=== PATIENT | female | born 1930 | race Caucasian/White ===

== ENCOUNTER 2017-07-29 16:03 | Emergency (ER) | payer MEDICARE ==
[2017-07-29] MEDS ORDERED: NITROGLYCERIN OINT 1 INCH/GM PACKET TOPICAL STA (16:44)
[2017-07-29] MEDS ORDERED: FUROSEMIDE 10 MG/ML 4 ML VIAL IV STA (16:44)
[2017-07-29] MEDS ORDERED: ASPIRIN 81 MG PO STA (16:45)
[2017-07-29 17:09] VITALS: RESP 18
[2017-07-29 17:11] LABS: Basophils % (A) 1 %; Eosinophils # (A) 0.2 k/uL (0-0.7); Eosinophils % (A) 3 %; HCT 40.3 % (34.0-46.0); HGB 13.2 gm/dL (11.4-16.0); Lymphocytes # (A) 0.7 k/uL (1.0-4.8); Lymphocytes % (A) 12 %; MCH 31.5 pg (25.0-35.0); MCHC 32.8 g/dL (31.0-37.0); Mean Platelet Volume 7.2; Monocytes # (A) 0.4 k/uL (0-1.0); Monocytes % (A) 8 %; Neutrophils % (A) 75 %; Platelet Count 198 k/uL (150-450); RDW 13.5 % (11.5-15.5); WBC 5.3 k/uL (3.8-10.6)
[2017-07-29 17:18] LABS: Partial Thromboplastin Time 29.1 sec (22.0-30.0); Prothrombin Time 18.6 sec (9.0-12.0)
[2017-07-29 17:24] LABS: ALT 41 U/L (9-52); AST 27 U/L (14-36); Albumin 3.5 g/dL (3.5-5.0); Alkaline Phosphatase 75 U/L (38-126); Anion Gap 9 mmol/L; Blood Urea Nitrogen 15 mg/dL (7-17); Calcium 9.2 mg/dL (8.4-10.2); Carbon Dioxide 25 mmol/L (22-30); Chloride 102 mmol/L (98-107); Glucose 112 mg/dL (74-99); Potassium 4.6 mmol/L (3.5-5.1); Sodium 136 mmol/L (137-145); Total Protein 6.2 g/dL (6.3-8.2)
--- NOTE | 2017-07-29 17:29 | XR ---
EXAMINATION TYPE: XR chest 2V DATE OF EXAM: 07/29/2017 COMPARISON: Chest x-ray January 15, 2013 HISTORY: Difficulty in breathing. TECHNIQUE: Frontal and lateral views of the chest are obtained. FINDINGS: There is persistent cardiomegaly with multi lead pacemaker. Overlying sternal wires and m ediastinal clips are redemonstrated. There is metallic cardiac valvular ring demonstrated. There is new small right pleural effusion. Background chronic emphysematous changes suspected on lateral view. There is no suspicious focal airspace opacity or pneumothorax seen bilaterally. The osseous structur es remain demineralized. IMPRESSION: Chronic emphysematous change and cardiomegaly redemonstrated with new small right pleura l effusion noted.
[2017-07-29 17:31] LABS: Creatine Kinase 71 U/L (30-135)
[2017-07-29 17:44] LABS: Creatine Kinase MB 2.2 ng/mL (0.0-2.4); Troponin I <0.012 ng/mL (0.000-0.034)
--- NOTE | 2017-07-29 18:40 | ED ---
General Adult HPI - General Chief complaint: Extremity Problem,Nontraumatic Stated complaint: Leg Swelling Time Seen by Provider: 07/29/17 16:38 Source: patient Mode of arrival: wheelchair Limitations: physical limitation - History of Present Illness Initial comments: This 86-year-old white female presents with a complaint of lower extremity edema bilaterally. This is been present for the last couple of days. She denies any chest pain or shortness of breath. She apparently has had some congestive heart failure in the past. She's also had previous open-heart surgery and pacer/defibrillator placed. She denies any fevers or chills. She is essentially asymptomatic other than the lower extremity edema. She is not on any home diuretics other than spironolactone. 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 No other complaints or modifying factors. - Related Data Home Medications Medication Instructions Recorded Confirmed Aspirin [Adult Low Dose Aspirin EC] 81 mg PO DAILY 04/05/16 07/29/17 Atorvastatin Calcium [Lipitor] 20 mg PO HS 04/05/16 07/29/17 Carvedilol [Coreg] 25 mg PO AC-BRKFST 04/05/16 07/29/17 Losartan Potassium [Cozaar] 50 tab PO HS 04/05/16 07/29/17 Multivit-Min/FA/Lycopen/Lutein 1 tab PO DAILY 04/05/16 07/29/17 [Centrum Silver Tablet] Spironolactone [Aldactone] 12.5 mg PO DAILY 04/05/16 07/29/17 Vit C/E/Zn/Coppr/Lutein/Zeaxan 1 cap PO BID 04/05/16 07/29/17 [Preservision Areds 2 Softgel] Carboxymethylcellulose Sodium 1 drop LEFT EYE BID PRN 04/26/16 07/29/17 [Refresh Tears] Carvedilol [Carvedilol] 37.5 mg PO DAILY@1900 04/26/16 07/29/17 Cetirizine HCl [Zyrtec] 10 mg PO DAILY PRN 04/26/16 07/29/17 Losartan Potassium 100 mg PO DAILY 07/29/17 07/29/17 Warfarin [Coumadin] 0.5 mg PO MOWEFRSA 07/29/17 07/29/17 Warfarin [Coumadin] 1 mg PO SUTUTH 07/29/17 07/29/17 Previous Rx's Medication Instructions Recorded Amiodarone [Cordarone] 400 mg PO DAILY #30 tablet 04/30/16 Furosemide [Lasix] 20 mg PO DAILY #30 tab 07/29/17 Allergies Allergy/AdvReac Type Severity Reaction Status Date / Time amlodipine Allergy Unknown Verified 07/29/17 16:33 Penicillins Allergy Rash/Hives,"turned Verified 07/29/17 16:33 red" valsartan Allergy Unknown Verified 07/29/17 16:33 Review of Systems ROS Statement: Those systems with pertinent positive or pertinent negative responses have been documented in the HPI. ROS Other: All systems not noted in ROS Statement are negative. Past Medical History Past Medical History: Atrial Fibrillation, Cancer, Eye Disorder, Hyperlipidemia Additional Past Medical History / Comment(s): Hx Migraines. MACULAR DEGENERATION SCOTT. See Dr Pearson H&P. IBS. Hx endometrial cancer. A-FIB SINCE 02/2016. History of Any Multi-Drug Resistant Organisms: None Reported Past Surgical History: Coronary Bypass/CABG, Hysterectomy, Pacemaker Additional Past Surgical History / Comment(s): EXC Left Cataract. QUAD CABG 2010. Past Anesthesia/Blood Transfusion Reactions: No Reported Reaction Type of Cardiac Device: Permanent Pacemaker Device Placement Date:: 2011 Past Psychological History: No Psychological Hx Reported Smoking Status: Never smoker Past Alcohol Use History: None Reported Past Drug Use History: None Reported - Past Family History Father Family Medical History: Cancer General Exam - General Exam Comments Initial Comments: GENERAL: The patient is well nourished and well hydrated. VITAL SIGNS: Heart rate, blood pressure, respiratory rate reviewed as recorded in nurse's notes. EYES: Pupils are round and reactive. Extraocular movements are intact. No conjunctival / lid redness or swelling. ENT: No external evidence of injury, swelling, or ecchymosis. Airway is patent. Throat is clear. NECK: Nontender. No swelling or evidence of injury. No subcutaneous emphysema. Trachea is midline. No thyroid mass. HEART: Regular rate and rhythm. Good peripheral pulses. LUNGS/CHEST: Breath sounds clear and equal bilaterally. No rales, rhonchi, or wheezes. No ecchymosis, subcutaneous emphysema, or tenderness. ABDOMEN: Abdomen soft without tenderness. No palpable masses or organomegaly. No peritoneal signs. No abdominal wall swelling or ecchymosis. EXTREMITIES: No extremity tenderness. Normal muscle tone and function. No thoracolumbar tenderness. There is lower extremity pitting edema up to the knee. NEUROLOGIC: Sensation is grossly intact. Cranial nerve exam reveals face is symmetrical, tongue is midline, speech is clear. SKIN: No abrasions or ecchymosis is noted. No induration or masses noted. PSYCHIATRIC: Alert and oriented. Appropriate behavior and judgment. Limitations: physical limitation Course Vital Signs 07/29/17 07/29/17 16:08 17:08 Temperature 97.3 F L Pulse Rate 67 61 Respiratory 22 18 Rate Blood Pressure 174/83 166/72 O2 Sat by Pulse 98 96 Oximetry Medical Decision Making - Medical Decision Making The patient was seen and examined. All diagnostics were reviewed. An IV was started and she received 60 mg of Lasix as well as some aspirin and Nitropaste. She had good urine output noted. The EKG shows a paced rhythm at a rate of 61. There is no acute ST-T wave changes identified. The TN intervals 126, QRS duration is 120, and the QTc interval is 497. The chest x-ray is reviewed and does show cardiomegaly as well as previous open heart surgery and a pacer/ defibrillator present. There is a slight right pleural effusion noted. No pneumonia is identified. The INR is 2.0. The remainder of labs are all essentially within normal limits except for an elevation of the BNP. The patient appears well on recheck. She is able to ambulate to the bathroom without difficulty. There is a possibility that she has some mild congestive heart failure. She certainly has some fluid retention. The case is discussed with Dr. Bonilla and he would like her discharged home and follow-up with him in the a.m. He would like her started on 20 mg of Lasix daily. - Lab Data Result diagrams: 07/29/17 16:59 07/29/17 16:59 Lab Results 07/29/17 07/29/17 07/29/17 Range/Units 16:59 16:59 16:59 WBC 5.3 (3.8-10.6) k/uL RBC 4.20 (3.80-5.40) m/uL Hgb 13.2 (11.4-16.0) gm/dL Hct 40.3 (34.0-46.0) % MCV 96.0 (80.0-100.0) fL MCH 31.5 (25.0-35.0) pg MCHC 32.8 (31.0-37.0) g/dL RDW 13.5 (11.5-15.5) % Plt Count 198 (150-450) k/uL Neutrophils % 75 % Lymphocytes % 12 % Monocytes % 8 % Eosinophils % 3 % Basophils % 1 % Neutrophils # 4.0 (1.3-7.7) k/uL Lymphocytes # 0.7 L (1.0-4.8) k/uL Monocytes # 0.4 (0-1.0) k/uL Eosinophils # 0.2 (0-0.7) k/uL Basophils # 0.0 (0-0.2) k/uL PT (9.0-12.0) sec INR (<1.2) APTT (22.0-30.0) sec Sodium 136 L (137-145) mmol/L Potassium 4.6 (3.5-5.1) mmol/L Chloride 102 (98-107) mmol/L Carbon Dioxide 25 (22-30) mmol/L Anion Gap 9 mmol/L BUN 15 (7-17) mg/dL Creatinine 0.97 (0.52-1.04) mg/dL Est GFR (MDRD) Af Amer >60 (>60 ml/min/1.73 sqM) Est GFR (MDRD) Non-Af 54 (>60 ml/min/1.73 sqM) Glucose 112 H (74-99) mg/dL Calcium 9.2 (8.4-10.2) mg/dL Total Bilirubin 1.0 (0.2-1.3) mg/dL AST 27 (14-36) U/L ALT 41 (9-52) U/L Alkaline Phosphatase 75 (38-126) U/L Total Creatine Kinase 71 (30-135) U/L CK-MB (CK-2) 2.2 (0.0-2.4) ng/mL CK-MB (CK-2) Rel Index 3.1 Troponin I <0.012 (0.000-0.034) ng/mL NT-Pro-B Natriuret Pep pg/mL Total Protein 6.2 L (6.3-8.2) g/dL Albumin 3.5 (3.5-5.0) g/dL 07/29/17 07/29/17 Range/Units 16:59 16:59 WBC (3.8-10.6) k/uL RBC (3.80-5.40) m/uL Hgb (11.4-16.0) gm/dL Hct (34.0-46.0) % MCV (80.0-100.0) fL MCH (25.0-35.0) pg MCHC (31.0-37.0) g/dL RDW (11.5-15.5) % Plt Count (150-450) k/uL Neutrophils % % Lymphocytes % % Monocytes % % Eosinophils % % Basophils % % Neutrophils # (1.3-7.7) k/uL Lymphocytes # (1.0-4.8) k/uL Monocytes # (0-1.0) k/uL Eosinophils # (0-0.7) k/uL Basophils # (0-0.2) k/uL PT 18.6 H (9.0-12.0) sec INR 2.0 H (<1.2) APTT 29.1 (22.0-30.0) sec Sodium (137-145) mmol/L Potassium (3.5-5.1) mmol/L Chloride (98-107) mmol/L Carbon Dioxide (22-30) mmol/L Anion Gap mmol/L BUN (7-17) mg/dL Creatinine (0.52-1.04) mg/dL Est GFR (MDRD) Af Amer (>60 ml/min/1.73 sqM) Est GFR (MDRD) Non-Af (>60 ml/min/1.73 sqM) Glucose (74-99) mg/dL Calcium (8.4-10.2) mg/dL Total Bilirubin (0.2-1.3) mg/dL AST (14-36) U/L ALT (9-52) U/L Alkaline Phosphatase (38-126) U/L Total Creatine Kinase (30-135) U/L CK-MB (CK-2) (0.0-2.4) ng/mL CK-MB (CK-2) Rel Index Troponin I (0.000-0.034) ng/mL NT-Pro-B Natriuret Pep 1920 pg/mL Total Protein (6.3-8.2) g/dL Albumin (3.5-5.0) g/dL Disposition Clinical Impression: Bilateral lower extremity edema, Hypertension, Pleural effusion, right Disposition: HOME SELF-CARE Condition: Good Instructions: Leg Edema (ED) Prescriptions: Furosemide [Lasix] 20 mg PO DAILY #30 tab Referrals: Elian Bonilla MD [Primary Care Provider] - 07/30/17 Time of Disposition: 18:40
[2017-07-29 18:51] VITALS: BP 157/74; PULSE 66; TEMP 97.4
== END 2017-07-29 18:51 | disposition home or self-care (01) ==
LOC: EC 16:03
DX: J90 Pleural effusion, not elsewhere classified (principal); R60.0 Localized edema; I11.0 Hypertensive heart disease with heart failure; I50.9 Heart failure, unspecified; I48.91 Unspecified atrial fibrillation; E78.5 Hyperlipidemia, unspecified; Z85.42 Personal history of malignant neoplasm of other parts of uterus; Z95.0 Presence of cardiac pacemaker; Z95.1 Presence of aortocoronary bypass graft; Z79.01 Long term (current) use of anticoagulants; Z79.02 Long term (current) use of antithrombotics/antiplatelets; Z79.82 Long term (current) use of aspirin; Z79.899 Other long term (current) drug therapy; Z88.8 Allergy status to other drugs, medicaments and biological substances; Z88.0 Allergy status to penicillin
CPT/HCPCS: 36415; 93005; 83880; 80053; 82550; 82553; 84484; 85025; 85610; 85730; 71046; 99284; 96374; J1940

== ENCOUNTER → 2019-03-01 | Outpatient (CLI) | payer MEDICARE ==
[2019-03-01 11:49] LABS: HCT 40.4 % (34.0-46.0); HGB 13.3 gm/dL (11.4-16.0); MCH 32.8 pg (25.0-35.0); MCV 99.2 fL (80.0-100.0); Mean Platelet Volume 7.4; Platelet Count 189 k/uL (150-450); RBC 4.07 m/uL (3.80-5.40); RDW 13.2 % (11.5-15.5); WBC 6.5 k/uL (3.8-10.6)
[2019-03-01 12:23] LABS: Potassium 4.3 mmol/L (3.5-5.1)
== END | disposition home or self-care (01) ==
LOC: LABPAT 10:45
PROVIDERS: ATTEND Internal Medicine Clinical Cardiac Electrophysiology
DX: Z01.812 Encounter for preprocedural laboratory examination (principal); I47.2 Ventricular tachycardia; I49.5 Sick sinus syndrome
CPT/HCPCS: 36415; 80051; 82565; 82947; 84520; 85027

== ENCOUNTER 2019-03-09 09:45 | Day surgery (SDC) | payer MEDICARE ==
[2019-03-01 10:10] VITALS: BMI 22.1
[~2019-03-09 09:45] MED LIST: SODIUM CHLORIDE 0.9% 1,000 ML IV SCH
[2019-03-09 10:59] LABS: INR 1.8 (<1.2); Prothrombin Time 18.1 sec (9.0-12.0)
[2019-03-09] MEDS ORDERED: CLINDAMYCIN 900 MG in DEXTROSE 5% IN WATER 50 ML IVPB ONE ×2 (11:00)
[2019-03-09] MEDS ORDERED: CLINDAMYCIN 600 MG in SODIUM CHLORIDE 0.9% IRRIGATIO 250 ML IRRIGATION ONE (11:00)
[2019-03-09] MEDS ORDERED: fentaNYL (PF) 50 MCG/ML 2 ML AMP ONE (11:45)
[2019-03-09] MEDS ORDERED: MIDAZOLAM 2 MG/2 ML VIAL ONE (11:45)
[2019-03-09] MEDS ORDERED: LIDOCAINE 1% INJ 10MG/ML (20 ML MDV) SQ ONE (12:38)
[2019-03-09] MEDS ORDERED: IV FLUID CONTINUATION 900 ML IV ONE (12:40)
[2019-03-09] MEDS ORDERED: ACETAMINOPHEN TAB 325 MG TAB PO PRN (13:11)
--- NOTE | 2019-03-09 13:28 | P.PCN ---
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 This device at [facility] Biventricular pacemaker, [employer] at [facility] Successful biventricular pacemaker generator change Plan Continue current medications without any changes
[2019-03-09] MEDS ORDERED: ACETAMINOPHEN IV (For NPO) 1,000 MG in EMPTY BAG 1 BAG IVPB ONE (13:30)
[2019-03-09] MEDS: SODIUM CHLORIDE 0.9% 1,000 ML IV SCH (13:33)
[2019-03-09] MEDS: LACTATED RINGERS 1,000 ML IV SCH ×2 (13:33→13:34)
--- NOTE | 2019-03-09 15:09 | PCN ---
PROCEDURE NOTE An 88-year-old female with a history of congestive heart failure, ventricular tachycardia, atrial fibrillation, ischemic cardiomyopathy who has had stable heart failure after biventricular pacing. Her device is at [facility] and she was brought in for a biventricular pacemaker generator change. Patient was brought to the EP lab in a fasting state. Written informed consent was obtained prior to the procedure. Those cinefluoroscopy of the leads was performed. The atrial lead was screwed in the right atrial appendage. RV lead in the mid RV septum and the LV lead tip was positioned in the posterolateral vein after coursing through the middle cardiac vein and then distally entering the posterolateral vein. No fractures or breaks were noted. The left pectoral area was prepped and draped as per protocol. 1% lidocaine was used for local anesthesia. A 4 cm incision was made directly over the generator and carried down to the level of the generator. The generator was explanted, partial capsulectomy was performed. The leads were disconnected from the old generator (Consulta CRTP) and the new generator implanted was a Medtronic Margarita MICA MACHINE OPERATOR-P MRI, model number W1TR02, serial #[id number]. The atrial lead was a Medtronic model #5076, 52 cm length in length and serial #[id number]. The patient was in atrial fibrillation, pacing impedance 570 ohms, R-wave was 0.7 mV. The RV lead was a Medtronic model #5076, 58 cm length and serial number #[id number]. R-waves 8 mV, pacing impedance 513 ohms, pacing threshold 0.75 V at 0.5 milliseconds. The chronic LV lead was a Medtronic model #4196, 88 cm in length and serial #[id number]. The distal tip was in the posterolateral vein. The lead and generator were then connected and connected and then placed in the subfascial pocket. The wound was closed in 3 layers and dressed per protocol. The LV ring to can configuration and a higher pacing threshold 3.5 V at 1.5 milliseconds. Therefore, the LV tip to can configuration was used. This has a threshold of 2.5 V at 1.5 milliseconds, pacing impedance of around 50 ohms. In addition, since she was in persistent atrial fibrillation, the base rate was increased to 70 beats per minute. The patient tolerated the procedure well without any acute complications. RESULT: 1. Serial fluoroscopy revealed no fractures or breaks in the biventricular system leads. 2. Successful biventricular pacemaker generator change for device at [facility] for heart failure management. MMODL / IJN: [id number] /
[2019-03-09] MEDS: CLINDAMYCIN 900 MG in DEXTROSE 5% IN WATER 50 ML IVPB SCH ×2 (17:23)
[2019-03-09] MEDS ORDERED: WARFARIN 1 MG TAB PO SCH (18:00)
[2019-03-09] MEDS ORDERED: CARVEDILOL 12.5 MG TAB PO SCH (19:00)
[2019-03-09] MEDS ORDERED: LOSARTAN 50 MG TAB PO SCH (21:00)
[2019-03-09] MEDS ORDERED: ATORVASTATIN 20 MG TAB PO SCH (21:00)
[2019-03-10] MEDS: SODIUM CHLORIDE 0.9% 1,000 ML IV SCH (00:31)
[2019-03-10] MEDS: LACTATED RINGERS 1,000 ML IV SCH (00:31)
[2019-03-10] MEDS: CLINDAMYCIN 900 MG in DEXTROSE 5% IN WATER 50 ML IVPB SCH ×6 (00:34→11:15)
[2019-03-10] MEDS ORDERED: CARVEDILOL 12.5 MG TAB PO SCH (07:30)
[2019-03-10 07:36] VITALS: RESP 18
--- NOTE | 2019-03-10 07:44 | P.DS ---
Providers Attending physician: Leonadr Pearson Primary care physician: [facility] Course: Patient is doing well. Minimal discomfort at the pacemaker site. No hematoma no swelling no bruising She denies any chest discomfort dizziness lightheadedness or palpitations. She is a bit confused which is her baseline state Blood pressure 136/76. His mercury respirations 12-14 normal no respiratory distress Pulse rate in the 60s and 70s, afebrile 97.6F Breath sounds are clear no rhonchi no crackles Heart sounds S1 and S2 are normal Abdomen is soft Extremities warm no edema Impression Ischemic current myopathy with congestive heart failure, chronic, stable, class II Status post biventricular pacemaker implantation for heart failure management Biventricular Pacemaker generator change yesterday device at [facility] Known coronary artery disease status post coronary artery bypass grafting and mitral valve surgery Plan Discharge home after completion of IV antibiotics Ambulate in the hallways with physical therapy prior to that No changes in her medications Follow-up in the device clinic in 7 days Plan - Discharge Summary Discharge Rx Participant: No New Discharge Prescriptions: Continue Atorvastatin Calcium [Lipitor] 20 mg PO HS Multivit-Min/FA/Lycopen/Lutein [Centrum Silver Tablet] 1 tab PO DAILY Losartan Potassium [Cozaar] 50 tab PO HS Vit C/E/Zn/Coppr/Lutein/Zeaxan [Preservision Areds 2 Softgel] 1 cap PO BID Aspirin [Adult Low Dose Aspirin EC] 81 mg PO DAILY Spironolactone [Aldactone] 25 mg PO DAILY Carvedilol [Coreg*] 25 mg PO AC-BRKFST Carvedilol 75 mg PO DAILY@1900 Cetirizine HCl [Zyrtec] 10 mg PO DAILY PRN PRN Reason: ALLERGIES Carboxymethylcellulose Sodium [Refresh Tears] 1 drop LEFT EYE BID PRN PRN Reason: Dry Eye(S) Warfarin [Coumadin] 0.5 mg PO MO Losartan Potassium 100 mg PO DAILY Furosemide [Lasix] 40 mg PO DAILY Amiodarone [Cordarone] 200 mg PO DAILY Calcium Carbonate [Calcium] 600 mg PO DAILY Warfarin [Coumadin] 1 mg PO DAILY Discharge Medication List Aspirin [Adult Low Dose Aspirin EC] 81 mg PO DAILY 04/05/16 [History] Atorvastatin Calcium [Lipitor] 20 mg PO HS 04/05/16 [History] Carvedilol [Coreg*] 25 mg PO AC-BRKFST 04/05/16 [History] Losartan Potassium [Cozaar] 50 tab PO HS 04/05/16 [History] Multivit-Min/FA/Lycopen/Lutein [Centrum Silver Tablet] 1 tab PO DAILY 04/05/16 [History] Spironolactone [Aldactone] 25 mg PO DAILY 04/05/16 [History] Vit C/E/Zn/Coppr/Lutein/Zeaxan [Preservision Areds 2 Softgel] 1 cap PO BID 04/05/16 [History] Carboxymethylcellulose Sodium [Refresh Tears] 1 drop LEFT EYE BID PRN 04/26/16 [History] Carvedilol 75 mg PO DAILY@1900 04/26/16 [History] Cetirizine HCl [Zyrtec] 10 mg PO DAILY PRN 04/26/16 [History] Losartan Potassium 100 mg PO DAILY 07/29/17 [History] Warfarin [Coumadin] 0.5 mg PO MO 07/29/17 [History] Amiodarone [Cordarone] 200 mg PO DAILY 03/01/19 [History] Calcium Carbonate [Calcium] 600 mg PO DAILY 03/01/19 [History] Furosemide [Lasix] 40 mg PO DAILY 03/01/19 [History] Warfarin [Coumadin] 1 mg PO DAILY 03/09/19 [History] Follow up Appointment(s)/Referral(s): Leonard Pearson MD [STAFF PHYSICIAN] - 1 Week (Follow-up in the device clinic within one week follow up with Dr. Pearson/Ashly Griffin/Elysia Szymanski in 3-4 months) Activity/Diet/Wound Care/Special Instructions: PATIENT EDUCATION MATERIAL Instructions following a heart rhythm device generator implant. 1. Keep dressing DRY for ONE week. You may cover the area with Saran or Cling Wrap, prior to a shower. 2. The dressing will be removed after one week in the Device Clinic @ [facility]. Absorbable sutures were used to close the wound. 3. Avoid raising the arm above the shoulder level. [1 week restriction] 4. Avoid arm movements, like backscratching, rubbing the head, or pulling on a cord. (1 weeks restriction) 5. Gentle range of motion movements of the shoulder, closest to the incision should be performed to avoid a frozen shoulder. (Pendulum exercises of the shoulder) 6. The opposite arm may be used freely. 7. Avoid driving for 7 days. 8. Avoid activities such as golfing, swimming, weed whacking, lifting more than 10 pounds weight, bowling, gymnastics and weight training/lifting. (2 weeks restriction) 9. Activities such as wood chopping with an axe, pull-ups in the gymnasium, power lifting, arc-welding, being close to home induction cooktops will always be a problem. In case of any problems, please call [facility], [place], @ [phone], Attention: Device Clinic Continue all cardiac medications, no medication changes
[2019-03-10] MEDS ORDERED: LOSARTAN 50 MG TAB PO SCH (09:00)
[2019-03-10] MEDS ORDERED: ASPIRIN 81 MG PO SCH (09:00)
[2019-03-10] MEDS ORDERED: SPIRONOLACTONE 25 MG TAB PO SCH (09:00)
[2019-03-10] MEDS ORDERED: AMIODARONE 200 MG TAB PO SCH (09:00)
[2019-03-10] MEDS ORDERED: FUROSEMIDE 40 MG TAB PO SCH (09:00)
[2019-03-10 12:10] VITALS: BP 120/74; PULSE 74; TEMP 97.7
[2019-03-15] MEDS ORDERED: WARFARIN 0.5 MG TAB PO SCH (18:00)
== END 2019-03-10 13:00 | disposition home or self-care (01) ==
LOC: CATHEP 09:45 → 1SOBS 13:08 → CATHEP 03-10 13:00
PROVIDERS: ATTEND Internal Medicine Clinical Cardiac Electrophysiology
DX: Z45.010 Encounter for checking and testing of cardiac pacemaker pulse generator [battery] (principal); I11.0 Hypertensive heart disease with heart failure; I50.9 Heart failure, unspecified; I48.1 Persistent atrial fibrillation; I47.2 Ventricular tachycardia; I49.1 Atrial premature depolarization; I49.5 Sick sinus syndrome; I25.10 Atherosclerotic heart disease of native coronary artery without angina pectoris; I25.5 Ischemic cardiomyopathy; I08.1 Rheumatic disorders of both mitral and tricuspid valves; I27.20 Pulmonary hypertension, unspecified; E78.5 Hyperlipidemia, unspecified; G43.909 Migraine, unspecified, not intractable, without status migrainosus; H35.30 Unspecified macular degeneration; Z88.0 Allergy status to penicillin; Z88.8 Allergy status to other drugs, medicaments and biological substances; Z79.82 Long term (current) use of aspirin; Z79.01 Long term (current) use of anticoagulants; Z79.899 Other long term (current) drug therapy; Z95.2 Presence of prosthetic heart valve; Z95.1 Presence of aortocoronary bypass graft
CPT/HCPCS: 33229; 85610

== ENCOUNTER 2019-08-27 14:09 | Emergency (ER) | payer MEDICARE ==
--- NOTE | 2019-08-27 14:32 | ED ---
General Adult HPI - General Chief complaint: Upper Respiratory Infection Stated complaint: Cough, Poss UTI, Back Pain Time Seen by Provider: 08/27/19 14:17 Source: patient, family, RN notes reviewed Mode of arrival: wheelchair Limitations: altered mental status - History of Present Illness Initial comments: Patient is a pleasant 88-year-old female presenting to the emergency Department with complaints of cough and low back pain. Onset of symptoms was a couple of weeks ago. Patient does have cough with occasional yellow sputum. No fevers. Patient has been having back pain also for the past couple of weeks. Patient had difficulty standing secondary to discomfort earlier today. No weakness. No history of chronic back problems. Patient did talk with her doctor and advised come the emergency department for evaluation. No known trauma however patient has dementia and sometimes does not remember things. - Related Data Home Medications Medication Instructions Recorded Confirmed Aspirin [Adult Low Dose Aspirin EC] 81 mg PO DAILY 04/05/16 03/01/19 Atorvastatin Calcium [Lipitor] 20 mg PO HS 04/05/16 03/01/19 Carvedilol [Coreg*] 25 mg PO AC-BRKFST 04/05/16 03/01/19 Losartan Potassium [Cozaar] 50 tab PO HS 04/05/16 03/01/19 Multivit-Min/FA/Lycopen/Lutein 1 tab PO DAILY 04/05/16 03/01/19 [Centrum Silver Tablet] Spironolactone [Aldactone] 25 mg PO DAILY 04/05/16 03/01/19 Vit C/E/Zn/Coppr/Lutein/Zeaxan 1 cap PO BID 04/05/16 03/01/19 [Preservision Areds 2 Softgel] Carboxymethylcellulose Sodium 1 drop LEFT EYE BID PRN 04/26/16 03/01/19 [Refresh Tears] Carvedilol 75 mg PO DAILY@1900 04/26/16 03/09/19 Cetirizine HCl [Zyrtec] 10 mg PO DAILY PRN 04/26/16 03/01/19 Losartan Potassium 100 mg PO DAILY 07/29/17 03/01/19 Warfarin [Coumadin] 0.5 mg PO MO 07/29/17 03/09/19 Amiodarone [Cordarone] 200 mg PO DAILY 03/01/19 03/01/19 Calcium Carbonate [Calcium] 600 mg PO DAILY 03/01/19 03/01/19 Furosemide [Lasix] 40 mg PO DAILY 03/01/19 03/01/19 Warfarin [Coumadin] 1 mg PO DAILY 03/09/19 03/09/19 Allergies Allergy/AdvReac Type Severity Reaction Status Date / Time amlodipine Allergy Unknown Verified 08/27/19 14:16 Penicillins Allergy Rash/Hives,"turned Verified 08/27/19 14:16 red" valsartan Allergy Unknown Verified 08/27/19 14:16 Review of Systems ROS Statement: Those systems with pertinent positive or pertinent negative responses have been documented in the HPI. ROS Other: All systems not noted in ROS Statement are negative. Constitutional: Denies: fever, chills Eyes: Denies: eye pain ENT: Denies: ear pain Respiratory: Reports: cough. Denies: dyspnea Cardiovascular: Denies: chest pain Endocrine: Denies: fatigue Gastrointestinal: Denies: abdominal pain, nausea, vomiting Genitourinary: Denies: dysuria Musculoskeletal: Reports: as per HPI, back pain Skin: Denies: rash Neurological: Denies: weakness Past Medical History Past Medical History: Atrial Fibrillation, Cancer, Dementia, Eye Disorder, Hyperlipidemia Additional Past Medical History / Comment(s): Hx Migraines. MACULAR DEGENERATION SCOTT. See Dr Pearson H&P. IBS. Hx endometrial cancer. A-FIB SINCE 02/2016. History of Any Multi-Drug Resistant Organisms: None Reported Past Surgical History: Coronary Bypass/CABG, Hysterectomy, Pacemaker Additional Past Surgical History / Comment(s): EXC Left Cataract. QUAD CABG 2010. Past Anesthesia/Blood Transfusion Reactions: No Reported Reaction Type of Cardiac Device: Permanent Pacemaker Device Placement Date:: 2011 Past Psychological History: No Psychological Hx Reported Smoking Status: Never smoker Past Alcohol Use History: None Reported Past Drug Use History: None Reported - Past Family History Father Family Medical History: Cancer Additional Family Medical History / Comment(s): Lung & Colon General Exam Limitations: altered mental status General appearance: alert, in no apparent distress Head exam: Present: normocephalic Eye exam: Present: normal appearance, PERRL ENT exam: Present: normal oropharynx Neck exam: Present: normal inspection Respiratory exam: Present: normal lung sounds bilaterally Cardiovascular Exam: Present: regular rate, normal rhythm Expanded Peripheral pulses: 2+: Radial (R), Radial (L), Dorsalis Pedis (R), Dorsalis Pedis (L) GI/Abdominal exam: Present: soft. Absent: distended, tenderness Extremities exam: Present: normal inspection Back exam: Present: tenderness (Mild tenderness right paraspinal L2/L3 region) Neurological exam: Present: alert. Absent: motor sensory deficit Psychiatric exam: Present: normal affect, normal mood Skin exam: Present: normal color Course Vital Signs 08/27/19 14:10 Temperature 97.7 F Pulse Rate 87 Respiratory 20 Rate Blood Pressure 121/69 O2 Sat by Pulse 98 Oximetry Medical Decision Making - Medical Decision Making Patient reevaluated and resting comfortably in bed. Patient and daughter updated on results and need for follow-up. - Lab Data Lab Results 08/27/19 08/27/19 Range/Units 14:30 16:00 Urine Color Yellow Urine Appearance Clear (Clear) Urine pH 5.5 (5.0-8.0) Ur Specific [place] 1.014 (1.001-1.035) Urine Protein Negative (Negative) Urine Glucose (UA) Negative (Negative) Urine Ketones Negative (Negative) Urine Blood Negative (Negative) Urine Nitrite Negative (Negative) Urine Bilirubin Negative (Negative) Urine Urobilinogen <2.0 (<2.0) mg/dL Ur Leukocyte Esterase Negative (Negative) Influenza Type A RNA Not Detected (Not Detectd) Influenza Type B (PCR) Not Detected (Not Detectd) - Radiology Data Radiology results: image reviewed (Chest x-ray shows no acute process. Postoperative changes. Lumbar x-ray shows no acute fracture. Mild superior endplate loss T12.) Disposition Clinical Impression: Cough, Low back pain Disposition: HOME SELF-CARE Condition: Stable Instructions (If sedation given, give patient instructions): Acute Cough (ED), Acute Low Back Pain (ED) Additional Instructions: Please follow-up with Dr. Bonilla in the next couple days for recheck. Return for weakness, loss of control of bowel or bladder, fevers or difficulty breathing, worsening symptoms or other concerns. [id number] Tylenol or Motrin if needed Is patient prescribed a controlled substance at d/c from ED?: No Referrals: Elian Bonilla MD [Primary Care Provider] - 1-2 days Time of Disposition: 16:53
--- NOTE | 2019-08-27 15:13 | XR ---
EXAMINATION TYPE: XR chest 2V DATE OF EXAM: 08/27/2019 COMPARISON: 07/29/2017 HISTORY: Shortness of breath TECHNIQUE: Frontal and lateral views of the chest are obtained. FINDINGS: Scattered senescent parenchymal changes noted. Hyperinflation compatible with COPD. No evidence for infiltrate. No evidence for atelectasis. Heart size is stable. Mediastinal structures are stable and grossly unremarkable. No evidence for hilar prominence. Degenerative changes dorsal spine. IMPRESSION: 1. No evidence for acute pulmonary disease.
--- NOTE | 2019-08-27 15:16 | XR ---
EXAMINATION TYPE: XR lumbar spine 2 or 3V DATE OF EXAM: 08/27/2019 CLINICAL HISTORY: pain TECHNIQUE: Three views of the lumbar spine are submitted. COMPARISON: None. FINDINGS: There are 5 lumbar type vertebral bodies identified. There is mild loss of height in one superior en dplate of T12 which is of uncertain age and/or etiology. The lumbar spine shows satisfactory alignmen t without evidence of acute fracture or dislocation. Vertebral body heights are within normal limits. Moderate degenerative disc space narrowing of 3 4, L4-5 and L5-S1. Grade 1 anterolisthesis L4 and L5 3 mm. Severe lower lumbar facet joint arthropathy. The overlying soft tissue appears unremarkable . IMPRESSION: No acute fracture is seen in the lumbar spine. Mild superior endplate loss of height involving T12 of uncertain age and/or etiology.
[2019-08-27] MEDS ORDERED: traMADol 50 MG TAB PO STA (15:22)
[2019-08-27 16:38] LABS: Appearance,Urine Clear (Clear); Bilirubin,Urine Negative (Negative); Blood,Urine Negative (Negative); Color,Urine Yellow; Glucose,Urine (UA) Negative (Negative); Ketones,Urine Negative (Negative); Leukocyte Esterase,Urine Negative (Negative); Nitrite,Urine Negative (Negative); PH, Urine 5.5 (5.0-8.0); Protein,Urine Negative (Negative); Specific Gravity,Urine 1.014 (1.001-1.035); Urobilinogen,Urine <2.0 mg/dL (<2.0)
[2019-08-27] MEDS ORDERED: traMADol 50 MG STARTER PACK 3 TAB BTL PO STA (16:53)
[2019-08-27 18:01] VITALS: BP 124/72; PULSE 67; RESP 18; TEMP 97.3
== END 2019-08-27 17:00 | disposition home or self-care (01) ==
LOC: EC 14:09
DX: R05 Cough (principal); M54.5 Low back pain; R41.82 Altered mental status, unspecified; E78.5 Hyperlipidemia, unspecified; F03.90 Unspecified dementia, unspecified severity, without behavioral disturbance, psychotic disturbance, mood disturbance, and anxiety; I48.91 Unspecified atrial fibrillation; H57.9 Unspecified disorder of eye and adnexa; Z88.0 Allergy status to penicillin; Z88.8 Allergy status to other drugs, medicaments and biological substances; Z79.01 Long term (current) use of anticoagulants; Z79.82 Long term (current) use of aspirin; Z79.899 Other long term (current) drug therapy; Z80.1 Family history of malignant neoplasm of trachea, bronchus and lung; Z85.42 Personal history of malignant neoplasm of other parts of uterus; Z86.69 Personal history of other diseases of the nervous system and sense organs; Z90.710 Acquired absence of both cervix and uterus
CPT/HCPCS: 71046; 72100; 81003; 87502; 99283

== ENCOUNTER → 2019-09-15 | Outpatient (CLI) | payer MEDICARE ==
[2019-09-15 17:12] LABS: Prothrombin Time 99.4 sec (9.0-12.0)
[2019-09-15 17:41] LABS: INR 9.5 (<1.2)
== END | disposition home or self-care (01) ==
LOC: LABWHC1 16:29
PROVIDERS: ATTEND Nurse Practitioner Adult Health
DX: I48.19 Other persistent atrial fibrillation (principal)
CPT/HCPCS: 36415; 85610

== ENCOUNTER 2019-09-16 09:31 | Observation (INO) | payer MEDICARE ==
[2019-09-16] MEDS ORDERED: OXYMETAZOLINE 0.05% NASL SPRAY 1 SPRAY BOTTLE NASAL STA ×2 (09:58→10:59)
[2019-09-16] MEDS ORDERED: SILVER NITRATE APPLICATOR 1 EACH STICK..EA. TOPICAL STA (10:08)
--- NOTE | 2019-09-16 10:40 | ED ---
ENT HPI <Art Rodriguez - Last Filed: 09/16/19 13:40> - General Source: patient Mode of arrival: ambulatory Limitations: no limitations <Parth Helms - Last Filed: 09/16/19 13:59> - General Chief complaint: ENT Stated complaint: nose bleed Time Seen by Provider: 09/16/19 09:56 - History of Present Illness Initial comments: Patient is an 88-year-old female presenting to emergency with chief complaint of nose bleed. Patient states the bleeding started about 1.5 hours prior to ED arrival. States the nosebleed is on the left side. The daughter states the patient saw her product applications scientist yesterday and today pain in on her level of 9 but discharge the patient home. Daughter states she is concerned due to the abnormal labs. Patient is currently on Coumadin. Denies lightheadedness dizziness or headache. Patient denies hemoptysis, hematemesis, hematuria, hematochezia or melena. (Parth Helms) - Related Data Home Medications Medication Instructions Recorded Confirmed Aspirin [Adult Low Dose Aspirin EC] 81 mg PO HS 04/05/16 09/16/19 Atorvastatin Calcium [Lipitor] 20 mg PO HS 04/05/16 09/16/19 Losartan Potassium [Cozaar] 50 tab PO HS 04/05/16 09/16/19 Multivit-Min/FA/Lycopen/Lutein 1 tab PO DAILY 04/05/16 09/16/19 [Centrum Silver Tablet] Spironolactone [Aldactone] 25 mg PO DAILY 04/05/16 09/16/19 Vit C/E/Zn/Coppr/Lutein/Zeaxan 1 cap PO BID 04/05/16 09/16/19 [Preservision Areds 2 Softgel] Carboxymethylcellulose Sodium 1 drop LEFT EYE BID PRN 04/26/16 09/16/19 [Refresh Tears] Warfarin [Coumadin] 0.5 mg PO MO 07/29/17 09/16/19 Amiodarone [Cordarone] 200 mg PO DAILY 03/01/19 09/16/19 Calcium Carbonate [Calcium] 600 mg PO DAILY 03/01/19 09/16/19 Furosemide [Lasix] 40 mg PO DAILY 03/01/19 09/16/19 Warfarin [Coumadin] 1 mg PO SUTUWETHFRSA 03/09/19 09/16/19 Lidocaine 5% Oint [Xylocaine 5% 1 applic TOPICAL DAILY 09/16/19 09/16/19 Oint] Metoprolol Succinate (ER) [Toprol 50 mg PO DAILY 09/16/19 09/16/19 Xl] Allergies Allergy/AdvReac Type Severity Reaction Status Date / Time amlodipine Allergy Unknown Verified 09/16/19 13:20 Penicillins Allergy Rash/Hives,"turned Verified 09/16/19 13:20 red" valsartan Allergy Unknown Verified 09/16/19 13:20 Review of Systems ROS Other: All systems not noted in ROS Statement are negative. <Art Rodriguez - Last Filed: 09/16/19 13:40> ROS Other: All systems not noted in ROS Statement are negative. <Parth Helms - Last Filed: 09/16/19 13:59> ROS Statement: Those systems with pertinent positive or pertinent negative responses have been documented in the HPI. Past Medical History Past Medical History: Atrial Fibrillation, Cancer, Dementia, Eye Disorder, Hyperlipidemia Additional Past Medical History / Comment(s): Hx Migraines. MACULAR DEGENERATION SCOTT. See Dr Pearson H&P. IBS. Hx endometrial cancer. A-FIB SINCE 02/2016. History of Any Multi-Drug Resistant Organisms: None Reported Past Surgical History: Coronary Bypass/CABG, Hysterectomy, Pacemaker Additional Past Surgical History / Comment(s): EXC Left Cataract. QUAD CABG 2010. Past Anesthesia/Blood Transfusion Reactions: No Reported Reaction Type of Cardiac Device: Permanent Pacemaker Device Placement Date:: 2011 Past Psychological History: No Psychological Hx Reported Smoking Status: Never smoker Past Alcohol Use History: None Reported Past Drug Use History: None Reported - Past Family History Father Family Medical History: Cancer Additional Family Medical History / Comment(s): Lung & Colon <Parth Helms - Last Filed: 09/16/19 13:59> General Exam Limitations: no limitations General appearance: alert, in no apparent distress Head exam: Present: atraumatic, normocephalic, normal inspection Eye exam: Present: normal appearance, PERRL, EOMI Pupils: Present: normal accommodation ENT exam: Present: normal exam, mucous membranes moist, TM's normal bilaterally, normal external ear exam. Absent: normal oropharynx (Anterior nosebleed from the left nostril) Neck exam: Present: normal inspection, full ROM Respiratory exam: Present: normal lung sounds bilaterally Cardiovascular Exam: Present: regular rate, normal rhythm, normal heart sounds Extremities exam: Present: normal inspection, full ROM Back exam: Present: normal inspection Neurological exam: Present: alert, oriented X3 Psychiatric exam: Present: normal affect, normal mood Skin exam: Present: warm, dry, intact, normal color <Parth Helms - Last Filed: 09/16/19 13:59> Course Vital Signs 09/16/19 09:37 Temperature 97.5 F L Pulse Rate 89 Respiratory 18 Rate Blood Pressure 134/74 O2 Sat by Pulse 99 Oximetry Procedures <Parth Helms - Last Filed: 09/16/19 13:59> - Procedures Initial comment: Nasal packing: Left nostril, Rhino Rocket, verbal consent, 4 mL in the anterior chamber, 4 mL in posterior chamber, patient tolerated procedure well. (Parth Helms) Medical Decision Making <Art Rodriguez - Last Filed: 09/16/19 13:40> - Medical Decision Making Patient reevaluated and reexamined by myself, Dr. Rodriguez. Patient has mild bruising left nares. Patient has coagulopathy. Case discussed in detail with Dr. Rosas, who will admit covered for Dr. Bonilla. He requests repeating INR prior to any further treatment. (Art Rodriguez) - Lab Data Lab Results 09/16/19 Range/Units 10:34 PT 99.8 H (9.0-12.0) sec INR 9.5 H* (<1.2) APTT 78.0 H (22.0-30.0) sec Disposition <Art Rodriguez - Last Filed: 09/16/19 13:40> Is patient prescribed a controlled substance at d/c from ED?: No Time of Disposition: 13:59 <Parth Helms - Last Filed: 09/16/19 13:59> Clinical Impression: Anterior epistaxis, Elevated INR Disposition: ADMITTED IP TO THIS [facility] Condition: Good Instructions (If sedation given, give patient instructions): Nosebleed (ED) Additional Instructions: Patient will be admitted Referrals: Elian Bonilla MD [Primary Care Provider] - 1-2 days
[2019-09-16 11:02] LABS: Prothrombin Time 99.8 sec (9.0-12.0)
[2019-09-16 11:19] LABS: INR 9.5 (<1.2)
[2019-09-16] MEDS ORDERED: PHYTONADIONE 10 MG in SODIUM CHLORIDE 0.9% 50 ML IVPB STA (11:30)
[2019-09-16] MEDS ORDERED: PHYTONADIONE 5 MG in SODIUM CHLORIDE 0.9% 50 ML IVPB ONE (12:00)
[2019-09-16] MEDS ORDERED: HYDROmorphone 0.5 MG/0.5 ML SYRINGE IVP PRN (13:56)
[2019-09-16] MEDS ORDERED: NALOXONE 0.4 MG/ML 1 ML VIAL IV PRN ×2 (13:56→15:10)
[2019-09-16] MEDS ORDERED: ACETAMINOPHEN TAB 325 MG TAB PO PRN (13:56)
[2019-09-16] MEDS ORDERED: LORazepam 2 MG/ML INJ IV PRN (13:56)
[2019-09-16] MEDS ORDERED: traMADol 50 MG TAB PO PRN (13:56)
[2019-09-16] MEDS: SODIUM CHLORIDE 0.9% 1,000 ML IV SCH (14:12)
[2019-09-16 14:49] LABS: INR 3.6 (<1.2); Partial Thromboplastin Time 53.3 sec (22.0-30.0); Prothrombin Time 35.4 sec (9.0-12.0)
--- NOTE | 2019-09-16 15:09 | P.HPIM ---
History of Present Illness H&P Date: 09/16/19 Chief Complaint: Nose bleed 88-year-old female with history of ischemic cardiomyopathy, atrial fibrillation, CAD presenting to emergency with chief complaint of nose bleed, which started this morning. The nosebleed is on the left side. Patient went for an INR checked yesterday and it was 9 but she was told to hold the Coumadin and follow up in 2 days. No bleeding was evident yesterday. Patient has been feeling weak this morning. No shortness of breath, no nausea or vomiting. No fevers or chills. No chest pain. She has a chronic back pain. Denies lightheadedness dizziness or headache. Patient denies hemoptysis, hematemesis, hematuria, hematochezia or melena. In the emergency department her left nose was packed, follow-up INR was 3.6, she was admitted to the hospital for further evaluation and treatment. Review of Systems Complete review of system performed, pertinent positives per HPI, otherwise negative Past Medical History Past Medical History: Atrial Fibrillation, Cancer, Dementia, Eye Disorder, Hyperlipidemia Additional Past Medical History / Comment(s): Hx Migraines. MACULAR DEGENERATION SCOTT. See Dr Pearson H&P. IBS. Hx endometrial cancer. A-FIB SINCE 02/2016. History of Any Multi-Drug Resistant Organisms: None Reported Past Surgical History: Coronary Bypass/CABG, Hysterectomy, Pacemaker Additional Past Surgical History / Comment(s): EXC Left Cataract. QUAD CABG 2010. Past Anesthesia/Blood Transfusion Reactions: No Reported Reaction Type of Cardiac Device: Permanent Pacemaker Device Placement Date:: 2011 Past Psychological History: No Psychological Hx Reported Smoking Status: Never smoker Past Alcohol Use History: None Reported Past Drug Use History: None Reported - Past Family History Father Family Medical History: Cancer Additional Family Medical History / Comment(s): Lung & Colon Medications and Allergies Home Medications Medication Instructions Recorded Confirmed Type Aspirin [Adult Low Dose Aspirin EC] 81 mg PO HS 04/05/16 09/16/19 History Atorvastatin Calcium [Lipitor] 20 mg PO HS 04/05/16 09/16/19 History Losartan Potassium [Cozaar] 50 tab PO HS 04/05/16 09/16/19 History Multivit-Min/FA/Lycopen/Lutein 1 tab PO DAILY 04/05/16 09/16/19 History [Centrum Silver Tablet] Spironolactone [Aldactone] 25 mg PO DAILY 04/05/16 09/16/19 History Vit C/E/Zn/Coppr/Lutein/Zeaxan 1 cap PO BID 04/05/16 09/16/19 History [Preservision Areds 2 Softgel] Carboxymethylcellulose Sodium 1 drop LEFT EYE BID PRN 04/26/16 09/16/19 History [Refresh Tears] Warfarin [Coumadin] 0.5 mg PO MO 07/29/17 09/16/19 History Amiodarone [Cordarone] 200 mg PO DAILY 03/01/19 09/16/19 History Calcium Carbonate [Calcium] 600 mg PO DAILY 03/01/19 09/16/19 History Furosemide [Lasix] 40 mg PO DAILY 03/01/19 09/16/19 History Warfarin [Coumadin] 1 mg PO SUTUWETHFRSA 03/09/19 09/16/19 History Lidocaine 5% Oint [Xylocaine 5% 1 applic TOPICAL DAILY 09/16/19 09/16/19 History Oint] Metoprolol Succinate (ER) [Toprol 50 mg PO DAILY 09/16/19 09/16/19 History Xl] Allergies Allergy/AdvReac Type Severity Reaction Status Date / Time amlodipine Allergy Unknown Verified 09/16/19 13:20 Penicillins Allergy Rash/Hives,"turned Verified 09/16/19 13:20 red" valsartan Allergy Unknown Verified 09/16/19 13:20 Physical Exam Vitals: Vital Signs Temp Pulse Resp BP Pulse Ox 09/16/19 09:37 97.5 F L 89 18 134/74 99 Intake and Output 09/15/19 09/16/19 09/16/19 22:59 06:59 14:59 Other: Weight 55.792 kg Constitutional: No acute distress, conversant, pleasant Eyes:Anicteric sclerae, moist conjunctiva, no lid-lag, PERRLA, ENMT: Blood dripping from the left side of the nose, no erythema, exudates Neck: Supple, FROM, no masses, or JVD, No carotid bruits, No thyromegaly Lungs: Clear to auscultation, Clear to percussion, Normal respiratory effort, no accessory muscle use Cardiovascular: Heart regular in rate and rhythm, No murmurs, gallops, or rubs, No peripheral edema Abdominal: Soft, Nontender, no guarding, rebound or rigidity, Normoactive bowel sounds, No hepatomegaly, No splenomegaly, No palpable mass Skin: Normal temperature, tone, texture, turgor, no induration, No subcutaneous nodules, No rash, lesions, No ulcers Extremities: No digital cyanosis, No clubbing, Pedal pulses intact and symmetrical, Radial pulses intact and symmetrical, No calf tenderness Psychiatric: Alert and oriented to person, place and time, appropriate affect, intact judgement Neuro: Muscles Strength 5/5 in all 4 extremities, Sensation to light touch grossly present throughout, Cranial nerves II-XII grossly intact, no focal sensory deficits Results Labs: Abnormal Lab Results - Last 24 Hours (Table) 09/16/19 09/16/19 Range/Units 10:34 14:25 PT 99.8 H 35.4 H (9.0-12.0) sec INR 9.5 H* 3.6 H (<1.2) APTT 78.0 H 53.3 H (22.0-30.0) sec Assessment and Plan Plan: Nosebleed/Coumadin coagulopathy We'll give 2.5 additional vitamin K subcu Recheck INR in a.m. If she continues to bleed will consult ENT Chronic Atrial Fibrillation, Ischemic cardiomyopathy Dementia, Hyperlipidemia MACULAR DEGENERATION SCOTT. All stable Resume meds Patient admitted to observation, less than 2 midnights Anticipated discharge: 1-2 days, home
[2019-09-16] MEDS ORDERED: PHYTONADIONE ORAL 5 MG/5 ML ORAL.SYRG PO STA (15:10)
[2019-09-16] MEDS ORDERED: ARTIFICIAL TEARS-HYPROMELLOSE DROPS 15 ML BTL LEFT EYE PRN (15:11)
[2019-09-16 17:08] LABS: Basophils % (A) 0 %; Eosinophils # (A) 0.2 k/uL (0-0.7); Eosinophils % (A) 3 %; HCT 37.5 % (34.0-46.0); HGB 11.9 gm/dL (11.4-16.0); Lymphocytes # (A) 1.1 k/uL (1.0-4.8); Lymphocytes % (A) 15 %; MCH 30.7 pg (25.0-35.0); MCHC 31.8 g/dL (31.0-37.0); MCV 96.3 fL (80.0-100.0); Monocytes # (A) 0.4 k/uL (0-1.0); Monocytes % (A) 6 %; Neutrophils # (A) 5.1 k/uL (1.3-7.7); Neutrophils % (A) 73 %; Platelet Count 286 k/uL (150-450); RBC 3.89 m/uL (3.80-5.40); RDW 13.8 % (11.5-15.5); WBC 6.9 k/uL (3.8-10.6)
[2019-09-16 17:40] LABS: Albumin 3.6 g/dL (3.5-5.0); Calcium 8.9 mg/dL (8.4-10.2); Magnesium 2.4 mg/dL (1.6-2.3); Phosphorus 2.8 mg/dL (2.5-4.5); Potassium 4.5 mmol/L (3.5-5.1); Total Bilirubin 0.7 mg/dL (0.2-1.3); Total Protein 6.3 g/dL (6.3-8.2)
[2019-09-16] MEDS ORDERED: LOSARTAN 50 MG TAB PO SCH (21:00)
[2019-09-16] MEDS ORDERED: ATORVASTATIN 20 MG TAB PO SCH (21:00)
[2019-09-17 07:54] LABS: Basophils % (A) 0 %; Eosinophils # (A) 0.1 k/uL (0-0.7); Eosinophils % (A) 1 %; HCT 33.5 % (34.0-46.0); HGB 11.1 gm/dL (11.4-16.0); Lymphocytes # (A) 0.9 k/uL (1.0-4.8); Lymphocytes % (A) 11 %; MCH 31.6 pg (25.0-35.0); MCHC 33.1 g/dL (31.0-37.0); MCV 95.4 fL (80.0-100.0); Monocytes # (A) 0.4 k/uL (0-1.0); Monocytes % (A) 5 %; Neutrophils # (A) 6.6 k/uL (1.3-7.7); Neutrophils % (A) 81 %; Platelet Count 279 k/uL (150-450); RBC 3.51 m/uL (3.80-5.40); RDW 13.9 % (11.5-15.5); WBC 8.2 k/uL (3.8-10.6)
[2019-09-17 08:05] LABS: INR 1.2 (<1.2); Prothrombin Time 12.4 sec (9.0-12.0)
[2019-09-17] MEDS: SODIUM CHLORIDE 0.9% 1,000 ML IV SCH (08:28)
[2019-09-17] MEDS ORDERED: CALCIUM CARBONATE 500 MG CHEWABLE PO SCH (09:00)
[2019-09-17] MEDS ORDERED: METOPROLOL SUCCINATE (ER) 50 MG TAB.ER.24H PO SCH (09:00)
[2019-09-17] MEDS ORDERED: LIDOCAINE 5% OINTMENT 50 GM JAR TOPICAL SCH (09:00)
[2019-09-17] MEDS ORDERED: AMIODARONE 200 MG TAB PO SCH (09:00)
--- NOTE | 2019-09-17 10:24 | P.DS ---
Providers Date of admission: 09/16/19 13:40 Expected date of discharge: 09/17/19 Attending physician: Malcolm Rush MD Primary care physician: Elian Bonilla [facility] Course: 88-year-old female with history of ischemic cardiomyopathy, atrial fibrillation, CAD presenting to emergency with chief complaint of nose bleed, which started this morning. The nosebleed is on the left side. Patient went for an INR checked yesterday and it was 9 but she was told to hold the Coumadin and follow up in 2 days. No bleeding was evident yesterday. Patient has been feeling weak this morning. No shortness of breath, no nausea or vomiting. No f tiffanie or chills. No chest pain. She has a chronic back pain. Denies lightheadedness dizziness or headache. Patient denies hemoptysis, hematemesis, hematuria, hematochezia or melena. In the emergency department her left nose was packed, follow-up INR was 3.6, she was admitted to the hospital for further evaluation and treatment. Patient continued to bleed from her nose for several hours after admission. Bleeding eventually subsided. She was given 2 doses of vitamin K in total. This morning his INR is 1.2. Bleeding has stopped. She will be prescribed eliquis upon discharge. This was called in to the pharmacy. She will be discharged home in a stable condition. Patient Condition at Discharge: Good Plan - Discharge Summary Discharge Rx Participant: No New Discharge Prescriptions: New Apixaban [Eliquis] 2.5 mg PO BID #60 tab Continue Atorvastatin Calcium [Lipitor] 20 mg PO HS Multivit-Min/FA/Lycopen/Lutein [Centrum Silver Tablet] 1 tab PO DAILY Losartan Potassium [Cozaar] 50 tab PO HS Vit C/E/Zn/Coppr/Lutein/Zeaxan [Preservision Areds 2 Softgel] 1 cap PO BID Aspirin [Adult Low Dose Aspirin EC] 81 mg PO HS Spironolactone [Aldactone] 25 mg PO DAILY Carboxymethylcellulose Sodium [Refresh Tears] 1 drop LEFT EYE BID PRN PRN Reason: Dry Eye(S) Furosemide [Lasix] 40 mg PO DAILY Amiodarone [Cordarone] 200 mg PO DAILY Calcium Carbonate [Calcium] 600 mg PO DAILY Lidocaine 5% Oint [Xylocaine 5% Oint] 1 applic TOPICAL DAILY Metoprolol Succinate (ER) [Toprol XL] 50 mg PO DAILY Discontinued Warfarin [Coumadin] 0.5 mg PO MO Warfarin [Coumadin] 1 mg PO SUTUWETHFRSA Discharge Medication List Aspirin [Adult Low Dose Aspirin EC] 81 mg PO HS 04/05/16 [History] Atorvastatin Calcium [Lipitor] 20 mg PO HS 04/05/16 [History] Losartan Potassium [Cozaar] 50 tab PO HS 04/05/16 [History] Multivit-Min/FA/Lycopen/Lutein [Centrum Silver Tablet] 1 tab PO DAILY 04/05/16 [History] Spironolactone [Aldactone] 25 mg PO DAILY 04/05/16 [History] Vit C/E/Zn/Coppr/Lutein/Zeaxan [Preservision Areds 2 Softgel] 1 cap PO BID 04/05/16 [History] Carboxymethylcellulose Sodium [Refresh Tears] 1 drop LEFT EYE BID PRN 04/26/16 [History] Amiodarone [Cordarone] 200 mg PO DAILY 03/01/19 [History] Calcium Carbonate [Calcium] 600 mg PO DAILY 03/01/19 [History] Furosemide [Lasix] 40 mg PO DAILY 03/01/19 [History] Lidocaine 5% Oint [Xylocaine 5% Oint] 1 applic TOPICAL DAILY 09/16/19 [History] Metoprolol Succinate (ER) [Toprol XL] 50 mg PO DAILY 09/16/19 [History] Apixaban [Eliquis] 2.5 mg PO BID #60 tab 09/17/19 [Rx] Follow up Appointment(s)/Referral(s): Elian Bonilla MD [Primary Care Provider] - 1-2 days Patient Instructions/Handouts: Nosebleed (ED) Activity/Diet/Wound Care/Special Instructions: Patient will be admitted
[2019-09-17 12:24] VITALS: BMI 22.2
[2019-09-17 12:29] VITALS: BP 142/84; PULSE 94; RESP 17; TEMP 97.5
== END 2019-09-17 17:05 | disposition home or self-care (01) ==
LOC: EC 09:31 → 5NMEDONC 13:40
PROVIDERS: ADMIT Internal Medicine; ATTEND Internal Medicine
DX: R04.0 Epistaxis (principal); D68.9 Coagulation defect, unspecified; T45.515A Adverse effect of anticoagulants, initial encounter; I48.91 Unspecified atrial fibrillation; I25.5 Ischemic cardiomyopathy; H35.30 Unspecified macular degeneration; F03.90 Unspecified dementia, unspecified severity, without behavioral disturbance, psychotic disturbance, mood disturbance, and anxiety; E78.5 Hyperlipidemia, unspecified; I25.10 Atherosclerotic heart disease of native coronary artery without angina pectoris; Z79.82 Long term (current) use of aspirin; Z79.899 Other long term (current) drug therapy; Z79.01 Long term (current) use of anticoagulants; Z88.0 Allergy status to penicillin; Z88.8 Allergy status to other drugs, medicaments and biological substances; G43.909 Migraine, unspecified, not intractable, without status migrainosus; Z85.42 Personal history of malignant neoplasm of other parts of uterus; Z95.1 Presence of aortocoronary bypass graft; Z90.710 Acquired absence of both cervix and uterus; Z98.49 Cataract extraction status, unspecified eye; Z95.0 Presence of cardiac pacemaker; Z80.1 Family history of malignant neoplasm of trachea, bronchus and lung
CPT/HCPCS: 96375; 96365; 99284; 36415; 97161; 97166; 80053; 83735; 84100; 85025 ×2; 85610 ×2; 85730; G0378 ×2; J2060; J3430

== ENCOUNTER 2019-09-25 17:34 | Emergency (ER) | payer MEDICARE ==
[2019-09-25 17:42] VITALS: PULSE 70; RESP 16; TEMP 98
[2019-09-25] MEDS ORDERED: SALINE NASAL GEL 14.1 GM TUBE TOPICAL STA (17:58)
--- NOTE | 2019-09-25 18:05 | ED ---
ENT HPI - General Chief complaint: ENT Stated complaint: bloody nose Time Seen by Provider: 09/25/19 17:48 Source: patient, RN notes reviewed, old records reviewed Mode of arrival: ambulatory Limitations: no limitations - History of Present Illness Initial comments: This 88-year-old female who is currently on blood thinners or A. fib who is been having nosebleeds from the left naris on-and-off all day. She does not compliant with attempts to stop it. Patient was brought in by EMS no bleeding after EMS arrival. No reports of any trauma chills nausea vomiting sweats or other symptoms MD complaint: epistaxis - Related Data Home Medications Medication Instructions Recorded Confirmed Aspirin [Adult Low Dose Aspirin EC] 81 mg PO HS 04/05/16 09/16/19 Atorvastatin Calcium [Lipitor] 20 mg PO HS 04/05/16 09/16/19 Losartan Potassium [Cozaar] 50 tab PO HS 04/05/16 09/16/19 Multivit-Min/FA/Lycopen/Lutein 1 tab PO DAILY 04/05/16 09/16/19 [Centrum Silver Tablet] Spironolactone [Aldactone] 25 mg PO DAILY 04/05/16 09/16/19 Vit C/E/Zn/Coppr/Lutein/Zeaxan 1 cap PO BID 04/05/16 09/16/19 [Preservision Areds 2 Softgel] Carboxymethylcellulose Sodium 1 drop LEFT EYE BID PRN 04/26/16 09/16/19 [Refresh Tears] Amiodarone [Cordarone] 200 mg PO DAILY 03/01/19 09/16/19 Calcium Carbonate [Calcium] 600 mg PO DAILY 03/01/19 09/16/19 Furosemide [Lasix] 40 mg PO DAILY 03/01/19 09/16/19 Lidocaine 5% Oint [Xylocaine 5% 1 applic TOPICAL DAILY 09/16/19 09/16/19 Oint] Metoprolol Succinate (ER) [Toprol 50 mg PO DAILY 09/16/19 09/16/19 XL] Previous Rx's Medication Instructions Recorded Apixaban [Eliquis] 2.5 mg PO BID #60 tab 09/17/19 Allergies Allergy/AdvReac Type Severity Reaction Status Date / Time amlodipine Allergy Unknown Verified 09/25/19 17:35 Penicillins Allergy Rash/Hives,"turned Verified 09/25/19 17:35 red" valsartan Allergy Unknown Verified 09/25/19 17:35 Review of Systems ROS Statement: Those systems with pertinent positive or pertinent negative responses have been documented in the HPI. ROS Other: All systems not noted in ROS Statement are negative. Past Medical History Past Medical History: Atrial Fibrillation, Cancer, Heart Failure, Dementia, Eye Disorder, Hyperlipidemia, Osteoarthritis (OA) Additional Past Medical History / Comment(s): Hx Migraines. MACULAR DEGENERATION SCOTT. See Dr eParson H&P. IBS. Hx endometrial cancer. A-FIB SINCE 02/2016. History of Any Multi-Drug Resistant Organisms: None Reported Past Surgical History: Coronary Bypass/CABG, Hysterectomy, Pacemaker Additional Past Surgical History / Comment(s): EXC Left Cataract. QUAD CABG 2010. Past Anesthesia/Blood Transfusion Reactions: No Reported Reaction Type of Cardiac Device: Permanent Pacemaker Device Placement Date:: 2011 Past Psychological History: No Psychological Hx Reported Smoking Status: Never smoker Past Alcohol Use History: None Reported Past Drug Use History: None Reported - Past Family History Father Family Medical History: Cancer Additional Family Medical History / Comment(s): Lung & Colon General Exam - General Exam Comments Initial Comments: This a well-developed asthenic appearing female who is awake alert confused as per normal no active bleeding status time Limitations: no limitations General appearance: alert, in no apparent distress Head exam: Present: atraumatic, normocephalic, normal inspection Eye exam: Present: normal appearance, PERRL, EOMI. Absent: scleral icterus, conjunctival injection, periorbital swelling ENT exam: Present: mucous membranes moist, other (Dry blood seen in the left naris no acute findings.) Neck exam: Present: normal inspection. Absent: tenderness, meningismus, lymphadenopathy Respiratory exam: Present: normal lung sounds bilaterally. Absent: respiratory distress, wheezes, rales, rhonchi, stridor Cardiovascular Exam: Present: regular rate, normal rhythm, normal heart sounds. Absent: systolic murmur, diastolic murmur, rubs, gallop, clicks GI/Abdominal exam: Present: soft, normal bowel sounds. Absent: distended, tenderness, guarding, rebound, rigid Extremities exam: Present: normal inspection, full ROM, normal capillary refill. Absent: tenderness, pedal edema, joint swelling, calf tenderness Back exam: Present: normal inspection Neurological exam: Present: alert, oriented X3, CN II-XII intact Psychiatric exam: Present: normal affect, normal mood Skin exam: Present: warm, dry, intact, normal color. Absent: rash Course Vital Signs 09/25/19 17:36 Temperature 98 F Pulse Rate 70 Respiratory 16 Rate Blood Pressure 113/62 O2 Sat by Pulse 98 Oximetry - Reevaluation(s) Reevaluation #1: 09/25/19 18:09 I did review the materials presented with the patient she did have lab work done yesterday which I did review. Reevaluation #2: 09/25/19 19:21 Reevaluation patient reveals no further bleeding. I did discuss the findings with the power of criminal attorney. Patient will be discharged back to her snf with lubricating gel. Patient apparently has been physically manipulating the Medical Decision Making - Medical Decision Making Patient's had no further nosebleed and did discuss the case with the POA patient will be discharged with the nasal lubricant. - Lab Data Lab Results 09/25/19 Range/Units 18:25 Urine Color Light Yellow Urine Appearance Clear (Clear) Urine pH 5.5 (5.0-8.0) Ur Specific [place] 1.014 (1.001-1.035) Urine Protein Negative (Negative) Urine Glucose (UA) Trace H (Negative) Urine Ketones Negative (Negative) Urine Blood Negative (Negative) Urine Nitrite Negative (Negative) Urine Bilirubin Negative (Negative) Urine Urobilinogen 2.0 (<2.0) mg/dL Ur Leukocyte Esterase Moderate H (Negative) Urine RBC 2 (0-5) /hpf Urine WBC 5 (0-5) /hpf Ur Squamous Epith Cells 2 (0-4) /hpf Urine Bacteria Occasional H (None) /hpf Hyaline Casts 32 H (0-2) /lpf Urine Mucus Rare H (None) /hpf Disposition Clinical Impression: Anterior epistaxis Disposition: HOME SELF-CARE Condition: Good Instructions (If sedation given, give patient instructions): Nosebleed (ED) Additional Instructions: Uses the nasal lubricant 3 times a day as needed Is patient prescribed a controlled substance at d/c from ED?: No Referrals: Elian Bonilla MD [Primary Care Provider] - 1-2 days
[2019-09-25 19:11] LABS: Appearance,Urine Clear (Clear); Bacteria,Urine Occasional /hpf; Bilirubin,Urine Negative (Negative); Blood,Urine Negative (Negative); Color,Urine Light Yellow; Glucose,Urine (UA) Trace (Negative); Hyaline Casts,Urine 32 /lpf (0-2); Ketones,Urine Negative (Negative); Leukocyte Esterase,Urine Moderate (Negative); Mucus,Urine Rare /hpf; Nitrite,Urine Negative (Negative); PH, Urine 5.5 (5.0-8.0); Protein,Urine Negative (Negative); RBC,Urine 2 /hpf (0-5); Specific Gravity,Urine 1.014 (1.001-1.035); Squamous Epithelial Cell,Urine 2 /hpf (0-4); WBC,Urine 5 /hpf (0-5)
[2019-09-25] MEDS ORDERED: OXYMETAZOLINE 0.05% NASL SPRAY 1 SPRAY BOTTLE NASAL STA (19:46)
[2019-09-25] MEDS ORDERED: EPINEPHrine 1 MG/ML 1 ML AMP NASAL STA (19:47)
[2019-09-25] MEDS ORDERED: TETRACAINE 1% 10 MG/ML 2 ML AMP MISCELLANE STA (19:51)
[2019-09-25] MEDS ORDERED: SILVER NITRATE APPLICATOR 1 EACH STICK..EA. TOPICAL STA (20:38)
--- NOTE | 2019-09-25 21:13 | ED ---
Medical Decision Making - Medical Decision Making The patient was successfully cauterized reevaluation reveals no further bleeding. I did discuss this with the patient's daughter was present. Patient will be discharged - Lab Data Lab Results 09/25/19 Range/Units 18:25 Urine Color Light Yellow Urine Appearance Clear (Clear) Urine pH 5.5 (5.0-8.0) Ur Specific [place] 1.014 (1.001-1.035) Urine Protein Negative (Negative) Urine Glucose (UA) Trace H (Negative) Urine Ketones Negative (Negative) Urine Blood Negative (Negative) Urine Nitrite Negative (Negative) Urine Bilirubin Negative (Negative) Urine Urobilinogen 2.0 (<2.0) mg/dL Ur Leukocyte Esterase Moderate H (Negative) Urine RBC 2 (0-5) /hpf Urine WBC 5 (0-5) /hpf Ur Squamous Epith Cells 2 (0-4) /hpf Urine Bacteria Occasional H (None) /hpf Hyaline Casts 32 H (0-2) /lpf Urine Mucus Rare H (None) /hpf Disposition Clinical Impression: Anterior epistaxis Disposition: HOME SELF-CARE Condition: Good Instructions (If sedation given, give patient instructions): Nosebleed (ED) Additional Instructions: Uses the nasal lubricant 3 times a day as needed Is patient prescribed a controlled substance at d/c from ED?: No Referrals: Elian Bonilla MD [Primary Care Provider] - 1-2 days Procedures - Procedures Initial comment: Patient was very be discharged as she had no further nasal bleeding when the clot was broken loose after application of saline over can't. Patient require anesthetization of the left naris this was accompanied using first Afrin later by Pontocaine and adrenaline. I did use a single silver nitrate stick I did locate the bleeding area to the anterior nasal septal region. I was able to cauterize it the patient did tolerate this well.
[2019-09-25 21:15] VITALS: BP 131/76
== END 2019-09-25 21:16 | disposition home or self-care (01) ==
LOC: EC 17:34
DX: R04.0 Epistaxis (principal); I48.91 Unspecified atrial fibrillation; I50.9 Heart failure, unspecified; E78.5 Hyperlipidemia, unspecified; Z85.42 Personal history of malignant neoplasm of other parts of uterus; Z95.1 Presence of aortocoronary bypass graft; Z95.0 Presence of cardiac pacemaker; Z79.82 Long term (current) use of aspirin; Z79.899 Other long term (current) drug therapy; Z88.8 Allergy status to other drugs, medicaments and biological substances; Z88.0 Allergy status to penicillin
CPT/HCPCS: 81001; 99284; 30901; J0171